=== PATIENT | female | born 1945 | race Two or more races ===

== ENCOUNTER 2024-11-24 12:52 | Emergency (ER) | payer OTHER ==
[~2024-11-24] VITALS: Ht 170.2 cm; Wt 89.8 kg
[2024-11-24 14:29] LABS: BASO % 0.5 % (0.1-1.2); EOS # 0.03 (0.04-0.54); EOS % 0.4 % (0.7-7.0); LYMPH # 1.38 (1.18-3.74); LYMPH % 18.5 % (19.3-53.1); MEAN PLATELET VOLUME 9.60 fl (9.4-12.4); MONO # 0.50 (0.24-0.82); MONO % 6.7 % (4.7-12.5); NEUT # 5.48 (1.56-6.13); NEUT % 73.6 % (34.0-71.1); RED CELL DISTRIBUTION WIDTH 14.6 % (11.6-14.4)
[2024-11-24 14:46] LABS: COVID-19 AG NEGATIVE (NEGATIVE)
[2024-11-24 14:57] LABS: INR 1.15
[2024-11-24 15:14] LABS: ALT/SGPT 29.0 U/L (12-78); AST/SGOT 17.0 U/L (15-37); BILIRUBIN TOTAL 0.73 mg/dL (0.3-1.2); BUN CREA RATIO 17.0 (7.0-25.0); CREATININE SERUM 0.84 mg/dL (0.55-1.02); GFR 65.07; GLOBULINA 3.7 G/DL (2.4-3.5); GLUCOSE FASTING 124.0 mg/dL (65-100); LDH 194.0 U/L (84-246); OSMOLALITY SERUM 268.0 MOSM/KG (275-295); PHOSPHOKINASE CREATININE 65.0 U/L (26-192)
[2024-11-24 16:24] LABS: URINE APPEARANCE Clear; URINE BILIRRUBIN Negative (NEGATIVE); URINE BLOOD Small; URINE COLOR Yellow; URINE GLUCOSE Negative (NEGATIVE); URINE KETONE Negative (NEGATIVE); URINE LEUKOCYTE Large; URINE NITRATE Negative; URINE PROTEIN Trace (NEGATIVE); URINE UROBILINOGEN 0.2 E.U./dl
[2024-11-24 16:28] LABS: URINE BACTERIA 147.5 uL (0.0-1933); URINE EPITHELIAL CELLS 17.3 uL (0.0-38.8); URINE RBC 94.7 uL (0.0-20.8); URINE WBC 189.3 uL (0.0-23.2)
[2024-11-24 16:49] LABS: URINE CAST 0.29 uL (0.0-1.40)
[2024-11-24] MEDS ORDERED: SYNTHROID88 MCG PO (17:44)
[2024-11-24] MEDS ORDERED: BISOPROLOL-HCT1 EACH PO (17:45)
[2024-11-24] MEDS ORDERED: ELIQUIS5 MG PO (17:47)
[2024-11-24] MEDS ORDERED: PROPAFENONE HC225 MG PO (17:47)
[2024-11-24] MEDS ORDERED: BACTRIM DS TAB1 EACH PO (19:03)
== END 2024-11-24 19:10 | disposition home or self-care (01) ==
LOC: ER 12:52
PROVIDERS: Emergency Medicine
DX: R42 Dizziness and giddiness (principal); I10 Essential (primary) hypertension; I48.91 Unspecified atrial fibrillation; E07.89 Other specified disorders of thyroid; Z20.822 Contact with and (suspected) exposure to COVID-19